=== PATIENT | male | born 1960 | race African-American/Black ===

== ENCOUNTER 2016-12-05 11:26 | Inpatient (IN) | payer MEDICARE ==
[2016-12-05] MEDS ORDERED: IPRATROPIUM/ALBUTEROL 0.5-2.5 MG/3 ML AMPUL NEB ONE ×2 (11:44→12:33)
--- NOTE | 2016-12-05 11:51 | ER Document Report ---
ED Medical Screen (RME) - General Chief Complaint: Respiratory Distress Stated Complaint: CHEST PAINS/SHORTNESS OF BREATH Time seen by provider: 11:35 Mode of Arrival: Wheelchair Information source: Patient Notes: 55-year-old smoker, drug use, alcohol (none today) male in acute respiratory distress presented to the emergency room because his family brought him in. Pulse ox is in the mid 80s in triage with respiratory rate 32 he is not moving much air by auscultation and using accessory muscles to breathe. He was placed in room 17 and pulse ox was 84% on 2 L of oxygen, I increased that to 6 L and his pulse ox read 90. The DuoNeb was started immediatel and oxygen was placed down to 4 L nasal cannula during the DuoNeb treatment., Heart rate 125 respiratory rate 32 blood pressure 126/91. No edema in his extremities. He is unable to talk much due to respiratory distress. Past Medical History Renal/ Medical History: Denies: Hx Peritoneal Dialysis
[2016-12-05] MEDS ORDERED: METHYLPREDNISOLONE INJ 125 MG/2 ML SDV IV ONE (11:57)
[2016-12-05] MEDS ORDERED: NORMAL SALINE 500 ML IV ONE (12:03)
[2016-12-05 12:10] LABS: VENOUS BLOOD BASE EXCESS 7.6 mmol/L; VENOUS BLOOD HCO3 39.8 mmol/L (20-32); VENOUS BLOOD PH 7.24 (7.30-7.42)
--- NOTE | 2016-12-05 12:17 | ER Document Report ---
ED Respiratory Problem - General Mode of Arrival: Wheelchair Information source: Relative - HPI Patient complains to provider of: Short of breath Onset: Other - 3 days ago Associated symptoms: Other - see notes above <BRUNA JOHNSON - Last Filed: 12/05/16 15:14> <ASHER STEELE - Last Filed: 12/05/16 15:19> - General Chief Complaint: Shortness Of Breath Stated Complaint: CHEST PAINS/SHORTNESS OF BREATH Notes: 55 year old male with history of chronic breathing difficulty presents to the ED accompanied by family complaining of shortness of breath for the past 3 days. Patient denies any current pain. Patient has a history of smoking. A comprehensive HPI was unobtainable due to the patient's condition. (BRUNA JOHNSON) - Related Data Allergies/Adverse Reactions: No Known Allergies Allergy (Unverified 12/05/16 15:15) Past Medical History - General Information source: Patient - Social History Smoking Status: Current Every Day Smoker Family History: DM <BRUNA JOHNSON - Last Filed: 12/05/16 15:14> Review of Systems - Review of Systems Constitutional: No symptoms reported EENT: No symptoms reported Cardiovascular: No symptoms reported Respiratory: See HPI, Short of breath Gastrointestinal: No symptoms reported Genitourinary: No symptoms reported Male Genitourinary: No symptoms reported Musculoskeletal: No symptoms reported Skin: No symptoms reported Hematologic/Lymphatic: No symptoms reported Neurological/Psychological: No symptoms reported -: Yes All other systems reviewed and negative <BRUNA JOHNSON - Last Filed: 12/05/16 15:14> Physical Exam - General General appearance: Alert In distress: None - HEENT Head: Normocephalic, Atraumatic Eyes: Normal Extraocular movements intact: Yes Pupils: PERRL - Respiratory Respiratory status: Respiratory distress - mild Breath sounds: Wheezing - Coarse bilateral wheezing, Other - Decreased breath sounds bilaterally with scattered crackles.. No: Normal - Cardiovascular Rhythm: Regular Heart sounds: Normal auscultation - Abdominal Inspection: Normal - Back Back: Normal - Extremities General upper extremity: Normal inspection, Normal ROM General lower extremity: Normal inspection, Normal ROM - Neurological Neuro grossly intact: Yes Cognition: Normal - slow to recall Orientation: AAOx4 [place] Coma Scale Eye Opening: Spontaneous [place] Coma Scale Verbal: Oriented [place] Coma Scale Motor: Obeys Commands [place] Coma Scale Total: 15 Speech: Normal - Psychological Associated symptoms: Normal affect, Normal mood - Skin Skin Temperature: Warm Skin Moisture: Dry Skin Color: Normal <BRUNA JOHNSON - Last Filed: 12/05/16 15:14> Course - Laboratory Result Diagrams: 12/05/16 12:13 12/05/16 12:13 - Consults Dr. Pollock Time consulted: 15:12 <BRUNA JOHNSON - Last Filed: 12/05/16 15:14> - Laboratory Result Diagrams: 12/05/16 12:13 12/05/16 12:13 - EKG Interpretation by [facility] EKG shows normal: Sinus rhythm Rate: Tachycardia - Heart rate 109, slightly peaked T waves. Probable right atrial enlargement. No obvious ischemia. There is some mild artifact inhibiting computer interpretation. <ASHER STEELE - Last Filed: 12/05/16 15:19> - Re-evaluation Re-evalutation: 12/05/16 15:16 Patient has continued to improve on the BiPAP. PH as well as PCO2 are improving. I discussed with Dr. Pollock and the patient that he will be admitted. Patient requires admission for acute respiratory failure. ( ASHER STEELE) - Vital Signs Vital signs: Temp Pulse Resp BP Pulse Ox 26 H 142/93 H 80 L 12/05/16 15:01 12/05/16 15:00 12/05/16 15:01 - Laboratory Laboratory results interpreted by va: 12/05/16 12/05/16 12/05/16 11:59 12:13 12:13 Plt Count 75 L Carbonic Acid ABG pH ABG pCO2 ABG pO2 ABG HCO3 ABG Total CO2 ABG O2 Saturation VBG pH 7.24 L VBG pCO2 96.0 H* VBG HCO3 39.8 H Chloride 94 L Carbon Dioxide 36 H Glucose 128 H 12/05/16 14:27 Plt Count Carbonic Acid 2.14 H ABG pH 7.31 L ABG pCO2 71.0 H* ABG pO2 52.5 L ABG HCO3 35.3 H ABG Total CO2 37.4 H ABG O2 Saturation 82.8 L VBG pH VBG pCO2 VBG HCO3 Chloride Carbon Dioxide Glucose - Consults Dr. Pollock Reason for consultation: 12/05/16 15:12 Patient was discussed with Dr. Pollock and he agrees to see the patient at bedside and admit him. (BRUNA JOHNSON) Critical Care Note - Critical Care Note Total time excluding time spent on procedures (mins): 40 <ASHER STEELE - Last Filed: 12/05/16 15:19> Discharge <BRUNA JOHNSON - Last Filed: 12/05/16 15:14> - Discharge Admitting Provider: Hospitalist - Dr. Pollock Unit Admitted: IMCU <ASHER STEELE - Last Filed: 12/05/16 15:19> - Discharge Clinical Impression: Acute respiratory failure, Obstructive chronic bronchitis with exacerbation, Thrombocytopenia Condition: Serious Disposition: ADMITTED INPATIENT Scribe Documentation - Scribe Written by Scribe:: Girma Purcell, 12/05/2016 1240 acting as scribe for :: Immanuel <BRUNA JOHNSON - Last Filed: 12/05/16 15:14>
[2016-12-05 12:52] LABS: ABSOLUTE LYMPHOCYTES (AUTO) 0.8 10^3/uL (0.5-4.7); ABSOLUTE MONOCYTES (AUTO) 0.6 10^3/uL (0.1-1.4); ABSOLUTE NEUT (AUTO) 4.1 10^3/uL (1.7-8.2); BASOPHILS % (AUTO) 0.7 % (0-2); HEMATOCRIT 46.2 % (37.9-51.0); HEMOGLOBIN 15.4 g/dL (13.5-17.0); MEAN CORPUSCULAR HEMOGLOBIN 31.9 pg (27.0-33.4); MEAN CORPUSCULAR HGB CONC 33.4 g/dL (32.0-36.0); MEAN CORPUSCULAR VOLUME 95 fl (80-97); MONOCYTES % (AUTO) 10.6 % (3-13); RED BLOOD COUNT 4.84 10^6/uL (4.35-5.55); RED CELL DISTRIBUTION WIDTH 12.4 % (11.5-14.0); SEGMENTED NEUTROPHILS % (AUTO) 73.7 % (42-78); WHITE BLOOD COUNT 5.6 10^3/uL (4.0-10.5)
[2016-12-05 12:56] LABS: ALANINE AMINOTRANSFERASE 27 U/L (21-72); ALBUMIN 4.3 g/dL (3.5-5.0); ALKALINE PHOSPHATASE 92 U/L (38-126); ANION GAP 13 (5-19); ASPARTATE AMINO TRANSFERASE 28 U/L (17-59); BILIRUBIN,DIRECT 0.2 mg/dL (0.0-0.4); BILIRUBIN,TOTAL 1.2 mg/dL (0.2-1.3); BLOOD UREA NITROGEN 20 mg/dL (7-20); CARBON DIOXIDE 36 mmol/L (22-30); CHLORIDE 94 mmol/L (98-107); CREATININE RESULT 1.01 mg/dL (0.52-1.25); GLUCOSE 128 mg/dL (75-110); POTASSIUM 4.9 mmol/L (3.6-5.0); SODIUM 143.2 mmol/L (137-145); TOTAL PROTEIN 7.9 g/dL (6.3-8.2)
[2016-12-05 14:49] LABS: ARTERIAL BLOOD BASE EXCESS 6.2 mmol/L; ARTERIAL BLOOD O2 SATURATION 82.8 % (94-98)
[2016-12-05] MEDS ORDERED: ACETAMINOPHEN 325 MG TABLET PO PRN (16:31)
[2016-12-05] MEDS ORDERED: LEVALBUTEROL HCL NEB 1.25 MG/3 ML AMPUL NEB PRN (16:31)
[2016-12-05] MEDS ORDERED: ONDANSETRON HCL INJ/PF 4 MG/2 ML SDV IV PRN (16:39)
--- NOTE | 2016-12-05 16:48 | EKG REPORT ---
SEVERITY:- ABNORMAL ECG - SINUS TACHYCARDIA MULTIFORM VENTRICULAR PREMATURE COMPLEXES RIGHT ATRIAL ABNORMALITY ST ELEVATION SUGGESTS PERICARDITIS : Confirmed by: Noemí Kolb MD 05-Dec-2016 16:47:39
[2016-12-05] MEDS: METHYLPREDNISOLONE INJ 125 MG/2 ML SDV IV SCH ×2 (17:13→23:45)
[2016-12-05] MEDS: DOCUSATE SODIUM 100 MG CAPSULE PO SCH (17:13)
[2016-12-05] MEDS: NORMAL SALINE 1000 ML 1,000 ML IV PRN (17:13)
--- NOTE | 2016-12-05 17:16 | PDOC H&P ---
History of Present Illness Admission Date/PCP: 12/05/16 15:37 Patient complains of: Shortness of breath History of Present Illness: GONZALO LEACH is a 55 year old male, with no significant past medical history chronic smoker, has been dealing with shortness of breath for 2 years. There is an intermittent wheezing noted as well. Shortness of breath is more on exertion . No consultation nor any medication taken. Patient likewise would have intermittent sneezing and coughing. For the past several days his symptoms got worse and is more frequent. Patient is having shortness of breath even at rest. Patient is having cough but it is dry. There is continued wheezing, and sneezing. There is sinus congestion as well but no sore throat. Admits having fever and chills. No pleurisy. Eventually a family member was able to convince him to go to the emergency room, in the emergency room the patient was hypoxic, PCO2 was elevated, pH was low and the patienton BiPAP. Nebulizers were given, as well as steroids and patient slightly improved. Patient was then referred for admission. PH improved, PCO2 decreased. Denies lower extremity edema. Denies paroxysmal nocturnal dyspnea nor orthopnea during the course of illness. Past Medical History Medical History: None Past Surgical History Past Surgical History: Reports: Herniorrhaphy Social History Information Source: Patient Smoking Status: Current Every Day Smoker Frequency of Alcohol Use: None Hx Recreational Drug Use: No Drugs: None Hx Prescription Drug Abuse: No Family History Family History: DM, Hypertension Parental Family History Reviewed: Yes Children Family History Reviewed: Yes Sibling(s) Family History Reviewed.: Yes Medication/Allergy Allergies/Adverse Reactions: No Known Allergies Allergy (Unverified 12/05/16 15:15) Review of Systems Constitutional: PRESENT: chills, fever(s), weight loss - But intentional. Patient trying to lose weight and maintain weight by intentionally decreasing oral calorie intake.. ABSENT: headache(s), night sweats, weight gain Eyes: ABSENT: visual disturbances Ears: ABSENT: hearing changes Nose, Mouth, and Throat: ABSENT: mouth pain, sore throat, vertigo Cardiovascular: PRESENT: dyspnea on exertion. ABSENT: chest pain, edema, orthropnea, palpitations Respiratory: PRESENT: cough, dyspnea. ABSENT: hemoptysis, sputum Gastrointestinal: ABSENT: abdominal pain, constipation, diarrhea, hematemesis, hematochezia, melena, nausea, vomiting Genitourinary: ABSENT: dysuria, hematuria Musculoskeletal: ABSENT: joint swelling Integumentary: ABSENT: pruritus, rash, wounds Neurological: ABSENT: abnormal gait, abnormal speech, confusion, dizziness, focal weakness, syncope Psychiatric: ABSENT: anxiety, depression, homidical ideation, suicidal ideation Endocrine: ABSENT: cold intolerance, heat intolerance, polydipsia, polyuria Hematologic/Lymphatic: ABSENT: easy bleeding, easy bruising Physical Exam Vital Signs: Temp Pulse Resp BP Pulse Ox 29 H 130/95 H 98 12/05/16 16:56 12/05/16 16:00 12/05/16 16:56 General appearance: PRESENT: no acute distress, thin, other - On BiPAP Head exam: PRESENT: atraumatic, normocephalic Eye exam: PRESENT: conjunctiva pink, EOMI, PERRLA. ABSENT: scleral icterus Ear exam: PRESENT: normal external ear exam. ABSENT: drainage Mouth exam: PRESENT: moist, neck supple, tongue midline Throat exam: ABSENT: post pharyngeal erythema, tonsillar erythema Neck exam: ABSENT: carotid bruit, JVD, lymphadenopathy, thyromegaly Respiratory exam: PRESENT: decreased breath sounds, wheezes - Mild expiratory. ABSENT: rales, rhonchi Cardiovascular exam: PRESENT: RRR, +S1, +S2. ABSENT: diastolic murmur, rubs, systolic murmur Pulses: PRESENT: normal dorsalis pedis pul Vascular exam: PRESENT: normal capillary refill GI/Abdominal exam: PRESENT: normal bowel sounds, soft. ABSENT: distended, guarding, mass, organolmegaly, rebound, tenderness Rectal exam: PRESENT: deferred Extremities exam: PRESENT: full ROM. ABSENT: calf tenderness, clubbing, pedal edema Neurological exam: PRESENT: alert, awake, oriented to person, oriented to place , oriented to time, oriented to situation, CN II-XII grossly intact. ABSENT: motor sensory deficit Psychiatric exam: PRESENT: appropriate affect, normal mood. ABSENT: homicidal ideation, suicidal ideation Skin exam: PRESENT: dry, intact, warm. ABSENT: cyanosis, rash Results Impressions: Chest X-Ray 12/05/16 13:05 IMPRESSION: NO SIGNIFICANT RADIOGRAPHIC FINDING IN THE CHEST. Assessment & Plan - Diagnosis (1) Acute respiratory failure Qualifiers: Respiratory failure complication: hypoxia and hypercapnia Qualified Code(s): J96.01 - Acute respiratory failure with hypoxia; J96.02 - Acute respiratory failure with hypercapnia Is this a current diagnosis for this admission?: Yes (2) COPD exacerbation Is this a current diagnosis for this admission?: Yes (3) Thrombocytopenia Is this a current diagnosis for this admission?: Yes (4) Hyperglycemia Is this a current diagnosis for this admission?: Yes (5) Elevated blood pressure reading Is this a current diagnosis for this admission?: Yes - Time Time Spent: 50 to 70 Minutes - Inpatient Certification Based on my medical assessment, after consideration of the patient's comorbidities, presenting symptoms, or acuity I expect that the services needed warrant INPATIENT care.: Yes I certify that my determination is in accordance with my understanding of Medicare's requirements for reasonable and necessary INPATIENT services [42 CFR 412.3e].: Yes Medical Necessity: Need Close Monitoring Due to Risk of Patient Decompensation, Need for Nebulizer Therapy and Monitoring of Response, Risk of Complication if Not Cared For in Hospital Post Hospital Care: D/C Director Of Workforce Development Documentation - Plan Summary Plan Summary: The patient will be admitted to [facility]. We will continue BiPAP and respiratory to titrate per protocol. I will begin the patient on intravenous steroids, [id number] nebulizers. Patient had a history of fever, we will check cultures, begin antibiotic with Levaquin. We will follow platelet count. Arixtra for DVT prophylaxis. Obtain fasting blood sugar. Further testing depends on the initial evaluation as outlined above.
[2016-12-05] MEDS: LEVALBUTEROL HCL NEB 1.25 MG/3 ML AMPUL NEB SCH ×2 (19:48→23:33)
[2016-12-05] MEDS: IPRATROPIUM BROMIDE 0.02% NEB 0.5 MG/2.5 ML AMPUL NEB SCH ×2 (19:48→23:33)
[2016-12-06] MEDS: LEVALBUTEROL HCL NEB 1.25 MG/3 ML AMPUL NEB SCH ×6 (03:51→23:39)
[2016-12-06] MEDS: IPRATROPIUM BROMIDE 0.02% NEB 0.5 MG/2.5 ML AMPUL NEB SCH ×6 (03:51→23:39)
[2016-12-06] MEDS: NORMAL SALINE 1000 ML 1,000 ML IV PRN ×2 (05:06→18:26)
[2016-12-06] MEDS: METHYLPREDNISOLONE INJ 125 MG/2 ML SDV IV SCH ×4 (05:09→23:29)
[2016-12-06] MEDS: LANSOPRAZOLE 30 MG TAB.RAP.DR PO SCH (05:12)
[2016-12-06 06:53] LABS: HEMATOCRIT 40.7 % (37.9-51.0); HEMOGLOBIN 13.8 g/dL (13.5-17.0); HGB HCT DIFFERENCE 0.7; MEAN CORPUSCULAR HGB CONC 33.8 g/dL (32.0-36.0); MEAN CORPUSCULAR VOLUME 95 fl (80-97); RED CELL DISTRIBUTION WIDTH 12.7 % (11.5-14.0); WHITE BLOOD COUNT 3.2 10^3/uL (4.0-10.5)
[2016-12-06] MEDS ORDERED: FONDAPARINUX SODIUM INJ 2.5 MG/0.5 ML DISP.SYRIN SUBCUT SCH (08:00)
[2016-12-06 08:47] LABS: ANION GAP 9 (5-19); BLOOD UREA NITROGEN 33 mg/dL (7-20); CALCIUM 8.5 mg/dL (8.4-10.2); CARBON DIOXIDE 35 mmol/L (22-30); CHLORIDE 99 mmol/L (98-107); CREATININE RESULT 1.06 mg/dL (0.52-1.25); GLUCOSE 137 mg/dL (75-110); POTASSIUM 5.1 mmol/L (3.6-5.0); SODIUM 143.2 mmol/L (137-145)
[2016-12-06] MEDS: DOCUSATE SODIUM 100 MG CAPSULE PO SCH ×2 (09:17→18:26)
[2016-12-06] MEDS: LEVOFLOXACIN 750 MG TABLET PO SCH (09:18)
--- NOTE | 2016-12-06 11:19 | PDOC PROGRESS REPORT ---
Subjective Progress Note for:: 12/06/16 Subjective:: Patient is breathing better. Denies any chest pain, nausea or vomiting, chills fever, diarrhea. No wheezing reported. Currently on nasal cannula oxygen. Off the BiPAP since earlier this morning. Physical Exam Vital Signs: Temp Pulse Resp BP Pulse Ox 97.5 F 87 25 H 113/72 90 L 12/06/16 07:16 12/06/16 07:57 12/06/16 07:57 12/06/16 07:16 12/06/16 07:57 Intake & Output 12/05/16 12/06/16 12/07/16 06:59 06:59 06:59 Intake Total 1155 Output Total 500 Balance 655 Weight 61 kg General appearance: PRESENT: no acute distress, cooperative, thin Eye exam: PRESENT: EOMI Mouth exam: PRESENT: moist, neck supple Neck exam: ABSENT: JVD Respiratory exam: PRESENT: decreased breath sounds, wheezes - Minimal, other - Air entry is fair Cardiovascular exam: PRESENT: RRR. ABSENT: gallop GI/Abdominal exam: PRESENT: normal bowel sounds, soft. ABSENT: distended Extremities exam: ABSENT: pedal edema Neurological exam: PRESENT: alert, awake, oriented to situation Skin exam: PRESENT: dry, warm. ABSENT: cyanosis Results Laboratory Results: 12/06/16 05:39 12/06/16 08:15 12/06/16 12/06/16 12/06/16 05:39 05:39 08:15 WBC 3.2 L RBC 4.30 L Hgb 13.8 Hct 40.7 MCV 95 MCH 32.0 MCHC 33.8 RDW 12.7 Plt Count 67 L Sodium Cancelled 143.2 Potassium Cancelled 5.1 H Chloride Cancelled 99 Carbon Dioxide Cancelled 35 H Anion Gap Cancelled 9 BUN Cancelled 33 H Creatinine Cancelled 1.06 Est GFR ( Amer) Cancelled > 60 Est GFR (Non-Af Amer) Cancelled > 60 Glucose Cancelled 137 H Calcium Cancelled 8.5 Impressions: Chest X-Ray 12/05/16 13:05 IMPRESSION: NO SIGNIFICANT RADIOGRAPHIC FINDING IN THE CHEST. Assessment & Plan - Diagnosis (1) Acute respiratory failure Qualifiers: Respiratory failure complication: hypoxia and hypercapnia Qualified Code(s): J96.01 - Acute respiratory failure with hypoxia Is this a current diagnosis for this admission?: Yes (2) COPD exacerbation Is this a current diagnosis for this admission?: Yes (3) Thrombocytopenia Is this a current diagnosis for this admission?: Yes (4) Hyperglycemia Is this a current diagnosis for this admission?: Yes (5) Elevated blood pressure reading Is this a current diagnosis for this admission?: Yes - Time Time Spent with patient: 25-34 minutes - Plan Summary Plan Summary: We will change DVT prophylaxis to SCD and MARTA hose, as platelet is trending down. Continue steroids and nebulizers, patient improving in terms of respirations. Monitor potassium. Slightly elevated today. We'll give Kayexalate. Continue gentle hydration.
[2016-12-06] MEDS ORDERED: SODIUM POLYSTYRENE SULFONATE 15 GM/60 ML PO ONE (12:00)
[2016-12-07] MEDS: IPRATROPIUM BROMIDE 0.02% NEB 0.5 MG/2.5 ML AMPUL NEB SCH ×6 (04:46→23:54)
[2016-12-07] MEDS: LEVALBUTEROL HCL NEB 1.25 MG/3 ML AMPUL NEB SCH ×6 (04:46→23:54)
[2016-12-07] MEDS: LANSOPRAZOLE 30 MG TAB.RAP.DR PO SCH (05:11)
[2016-12-07] MEDS: METHYLPREDNISOLONE INJ 125 MG/2 ML SDV IV SCH ×3 (05:12→17:24)
[2016-12-07 05:58] LABS: HEMOGLOBIN 12.4 g/dL (13.5-17.0); HGB HCT DIFFERENCE 0.2; MEAN CORPUSCULAR HGB CONC 33.4 g/dL (32.0-36.0); MEAN CORPUSCULAR VOLUME 96 fl (80-97); RED BLOOD COUNT 3.86 10^6/uL (4.35-5.55); RED CELL DISTRIBUTION WIDTH 12.5 % (11.5-14.0)
[2016-12-07] MEDS: NORMAL SALINE 1000 ML 1,000 ML IV PRN ×2 (06:01→18:59)
[2016-12-07 06:19] LABS: ANION GAP 8 (5-19); BLOOD UREA NITROGEN 18 mg/dL (7-20); CALCIUM 8.3 mg/dL (8.4-10.2); CARBON DIOXIDE 35 mmol/L (22-30); CHLORIDE 100 mmol/L (98-107); CREATININE RESULT 0.74 mg/dL (0.52-1.25); GLUCOSE 161 mg/dL (75-110); POTASSIUM 4.2 mmol/L (3.6-5.0); SODIUM 143.4 mmol/L (137-145)
[2016-12-07 06:35] LABS: WHITE BLOOD COUNT 8.9 10^3/uL (4.0-10.5)
[2016-12-07] MEDS: LEVOFLOXACIN 750 MG TABLET PO SCH (09:32)
[2016-12-07] MEDS: DOCUSATE SODIUM 100 MG CAPSULE PO SCH ×2 (09:33→17:23)
--- NOTE | 2016-12-07 14:59 | PDOC PROGRESS REPORT ---
Subjective Progress Note for:: 12/07/16 Subjective:: Patient reports that his wheezing is doing better. Physical Exam Vital Signs: Temp Pulse Resp BP Pulse Ox 97.6 F 100 16 116/73 95 12/07/16 11:45 12/07/16 12:33 12/07/16 12:33 12/07/16 11:45 12/07/16 11:45 Intake & Output 12/06/16 12/07/16 12/08/16 06:59 06:59 06:59 Intake Total 1155 3826 120 Output Total 500 2350 600 Balance 655 1476 -480 Weight 61 kg 67.1 kg General appearance: PRESENT: no acute distress, thin Eye exam: PRESENT: conjunctiva pink. ABSENT: scleral icterus Mouth exam: PRESENT: moist, tongue midline Neck exam: ABSENT: JVD Respiratory exam: PRESENT: wheezes - Scattered respiratory wheezes. ABSENT: rales, rhonchi Cardiovascular exam: PRESENT: RRR. ABSENT: diastolic murmur, rubs, systolic murmur GI/Abdominal exam: PRESENT: normal bowel sounds, soft. ABSENT: distended, guarding, mass, organolmegaly, rebound, tenderness Extremities exam: ABSENT: calf tenderness, clubbing, pedal edema Neurological exam: PRESENT: alert, awake, oriented to person, oriented to place , oriented to time, oriented to situation, CN II-XII grossly intact. ABSENT: motor sensory deficit Psychiatric exam: PRESENT: appropriate affect Skin exam: PRESENT: dry, intact, warm. ABSENT: cyanosis, rash Results Laboratory Results: 12/07/16 05:35 12/07/16 05:35 12/07/16 12/07/16 05:35 05:35 WBC 8.9 D RBC 3.86 L Hgb 12.4 L Hct 37.0 L MCV 96 MCH 32.0 MCHC 33.4 RDW 12.5 Plt Count 85 L Sodium 143.4 Potassium 4.2 Chloride 100 Carbon Dioxide 35 H Anion Gap 8 BUN 18 Creatinine 0.74 Est GFR ( Amer) > 60 Est GFR (Non-Af Amer) > 60 Glucose 161 H Calcium 8.3 L Impressions: Chest X-Ray 12/05/16 13:05 IMPRESSION: NO SIGNIFICANT RADIOGRAPHIC FINDING IN THE CHEST. Assessment & Plan - Diagnosis (1) Acute respiratory failure Qualifiers: Respiratory failure complication: hypoxia and hypercapnia Qualified Code(s): J96.01 - Acute respiratory failure with hypoxia Is this a current diagnosis for this admission?: YesPlan: Secondary to acute COPD. (2) COPD exacerbation Is this a current diagnosis for this admission?: YesPlan: We'll continue with the steroids, antibiotics and nebulizers. (3) Thrombocytopenia Is this a current diagnosis for this admission?: YesPlan: No evidence for active bleeding. - Time Time Spent with patient: 25-34 minutes - Inpatient Certification Medical Necessity: Need Close Monitoring Due to Risk of Patient Decompensation
[2016-12-08] MEDS: METHYLPREDNISOLONE INJ 125 MG/2 ML SDV IV SCH ×3 (00:27→11:39)
[2016-12-08] MEDS: LEVALBUTEROL HCL NEB 1.25 MG/3 ML AMPUL NEB SCH ×3 (03:26→11:45)
[2016-12-08] MEDS: IPRATROPIUM BROMIDE 0.02% NEB 0.5 MG/2.5 ML AMPUL NEB SCH ×3 (03:26→11:44)
[2016-12-08] MEDS: LANSOPRAZOLE 30 MG TAB.RAP.DR PO SCH (05:56)
[2016-12-08 06:56] LABS: HEMATOCRIT 37.2 % (37.9-51.0); HEMOGLOBIN 12.7 g/dL (13.5-17.0); HGB HCT DIFFERENCE 0.9; MEAN CORPUSCULAR HEMOGLOBIN 32.5 pg (27.0-33.4); MEAN CORPUSCULAR HGB CONC 34.1 g/dL (32.0-36.0); MEAN CORPUSCULAR VOLUME 95 fl (80-97); RED CELL DISTRIBUTION WIDTH 12.2 % (11.5-14.0); WHITE BLOOD COUNT 9.3 10^3/uL (4.0-10.5)
[2016-12-08 07:13] LABS: ANION GAP 9 (5-19); BLOOD UREA NITROGEN 17 mg/dL (7-20); CALCIUM 8.8 mg/dL (8.4-10.2); CARBON DIOXIDE 35 mmol/L (22-30); CHLORIDE 102 mmol/L (98-107); CREATININE RESULT 0.72 mg/dL (0.52-1.25); GLUCOSE 101 mg/dL (75-110); SODIUM 146.1 mmol/L (137-145)
[2016-12-08] MEDS: NORMAL SALINE 1000 ML 1,000 ML IV PRN (07:38)
[2016-12-08 07:39] LABS: BASOPHILS % (MANUAL) 0 % (0-2); EOSINOPHILS % (MANUAL) 0 % (0-6); LYMPHOCYTES % (MANUAL) 3 % (13-45); TOTAL CELLS COUNTED 100
[2016-12-08 07:41] LABS: RBC MORPHOLOGY COMMENT NORMO-CYTIC/CHROMIC; TOXIC GRANULATION 1+
[2016-12-08] MEDS: LEVOFLOXACIN 750 MG TABLET PO SCH (09:05)
[2016-12-08] MEDS: DOCUSATE SODIUM 100 MG CAPSULE PO SCH (09:05)
[2016-12-08 13:40] VITALS: BP 122/73
--- NOTE | 2016-12-08 18:46 | PDOC DISCHARGE SUMMARY ---
General - Admit/Disc Date/PCP Admission Date/Primary Care Provider: 12/05/16 16:32 Discharge Date: 12/08/16 - Discharge Diagnosis (1) Acute respiratory failure Is this a current diagnosis for this admission?: YesSummary: Secondary to acute COPD exacerbation. (2) COPD exacerbation Is this a current diagnosis for this admission?: Yes (3) Thrombocytopenia Is this a current diagnosis for this admission?: Yes - Additional Information Resuscitation Status: Full Code Discharge Diet: Regular Discharge Activity: Activity As Tolerated, Balance Activity w/Rest Home Medications: Levalbuterol HCl [Xopenex Neb 1.25 mg/3 ml Ampul] 1.25 mg NEB RTQ4 #120 vial.neb 12/08/16 Levofloxacin [Levaquin 750 mg Tablet] 750 mg PO DAILY #4 tablet 12/08/16 History of Present Illness History of Present Illness: GONZALO LEACH is a 56 year old male who presented with worsening shortness of breath. Patient also had expiratory wheezes. The patient was noted to be hypoxic and he was started on a BiPAP in the emergency room. Patient is admitted for an acute COPD exacerbation. Hospital Course Hospital Course: 56-year-old male admitted with an acute COPD exacerbation. Patient was treated with steroids and nebulizers as well as antibiotics. Patient had improvement on the day of discharge he was no longer wheezing however he was noted to be significantly hypoxic and it was arranged for him to have home oxygen. She also will have home health for physical therapy. Physical Exam Vital Signs: Temp Pulse Resp BP Pulse Ox 98.5 F 103 H 20 122/73 90 L 12/08/16 12:57 12/08/16 12:57 12/08/16 12:57 12/08/16 12:57 12/08/16 12:57 Intake & Output 12/07/16 12/08/16 12/09/16 06:59 06:59 06:59 Intake Total 3826 3248 Output Total 2350 1200 Balance 1476 2048 Weight 67.1 kg 65 kg General appearance: PRESENT: no acute distress Eye exam: PRESENT: conjunctiva pink. ABSENT: scleral icterus Mouth exam: PRESENT: moist, tongue midline Neck exam: ABSENT: JVD Respiratory exam: PRESENT: clear to auscultation [place]ha. ABSENT: rales, rhonchi, wheezes Cardiovascular exam: PRESENT: RRR. ABSENT: diastolic murmur, rubs, systolic murmur GI/Abdominal exam: PRESENT: normal bowel sounds, soft. ABSENT: distended, guarding, mass, organolmegaly, rebound, tenderness Extremities exam: ABSENT: calf tenderness, clubbing, pedal edema Neurological exam: PRESENT: alert, awake, oriented to person, oriented to place , oriented to time, oriented to situation, CN II-XII grossly intact. ABSENT: motor sensory deficit Psychiatric exam: PRESENT: appropriate affect Skin exam: PRESENT: dry, intact, warm. ABSENT: cyanosis, rash Results Laboratory Results: 12/08/16 05:51 12/08/16 05:51 12/08/16 12/08/16 05:51 05:51 WBC 9.3 RBC 3.90 L Hgb 12.7 L Hct 37.2 L MCV 95 MCH 32.5 MCHC 34.1 RDW 12.2 Plt Count 108 L Seg Neutrophils % Not Reportable Lymphocytes % Not Reportable Monocytes % Not Reportable Eosinophils % Not Reportable Basophils % Not Reportable Absolute Neutrophils Not Reportable Absolute Lymphocytes Not Reportable Absolute Monocytes Not Reportable Absolute Eosinophils Not Reportable Absolute Basophils Not Reportable Sodium 146.1 H Potassium 4.0 Chloride 102 Carbon Dioxide 35 H Anion Gap 9 BUN 17 Creatinine 0.72 Est GFR ( Amer) > 60 Est GFR (Non-Af Amer) > 60 Glucose 101 Calcium 8.8 Impressions: Chest X-Ray 12/05/16 13:05 IMPRESSION: NO SIGNIFICANT RADIOGRAPHIC FINDING IN THE CHEST. Qualifiers PATEINT BEING DISCHARGED WITH ANY OF THE FOLLOWING DIAGNOSIS?: No Plan Discharge Plan: Patient is discharged home with home health with home oxygen. Time Spent: Greater than 30 Minutes
== END 2016-12-08 13:30 | disposition home or self-care (01) | DRG 190 ==
LOC: ER 11:26 → UNDOADMIN 15:37 → EH 15:37 → 3S 18:11
PROC: 5A09457 Assistance with Respiratory Ventilation, 24-96 Consecutive Hours, Continuous Positive Airway Pressure (ICD-10-PCS; principal; 2016-12-05)
DX: J44.1 Chronic obstructive pulmonary disease with (acute) exacerbation (principal); J96.01 Acute respiratory failure with hypoxia; D69.59 Other secondary thrombocytopenia; R73.9 Hyperglycemia, unspecified; F17.200 Nicotine dependence, unspecified, uncomplicated; Z83.3 Family history of diabetes mellitus; Z82.49 Family history of ischemic heart disease and other diseases of the circulatory system
CPT/HCPCS: 36415; 71010; 80048; 80053; 82803; 83605; 85025; 85027; 87040; 93005; 93010; 94640; 94660; 96361; 96374; 99291; J1652; J2930; J3490; J7030; J7040